=== PATIENT | male | born 1950 | race Caucasian/White ===

== ENCOUNTER 2016-07-21 13:00 | Outpatient (RCR) | payer MEDICARE | END 2016-10-05 | disposition home or self-care (01) | LOC: DT 13:00 | PROVIDERS: ATTEND Family Medicine | DX: E11.65 Type 2 diabetes mellitus with hyperglycemia (principal); Z94.0 Kidney transplant status | CPT/HCPCS: 97802; 97803 ==

== ENCOUNTER → 2016-08-19 | Outpatient (REF) | payer MEDICARE | LOC: LAB 10:06 | PROVIDERS: ATTEND Family Medicine | DX: E11.9 Type 2 diabetes mellitus without complications (principal); E78.2 Mixed hyperlipidemia | CPT/HCPCS: 80061; 83036 ==

== ENCOUNTER → 2016-11-12 | Outpatient (REF) | payer MEDICARE ==
[~2016-11-12] MED LIST: ALBU8.5H2 INH; ASPI-345 PO; AZIT250T PO; AZIT500T4 PO; B12/1TAB3 PO; CALC1TAB3; CALC600T PO; CITA40TA19 PO; CLON1TAB3 PO; DIPH1TAB49 PO; FENO45CA PO; FLUT12AE2 INH; FLUT12AE4 INH; FNST5T PO; GBPN600T PO; GLIP5TAB13 PO; HYDR-3708 PO; HYDR-3882 PO; LORA10TA7 PO; LOVA40TA2 PO; LSNP20T PO; LURA40TA PO; METF500T4 PO; METO50TA7 PO; OMEG1CAP PO; OXYB5POW PO; PANT40TA3 PO; PROP10DR4 OP; SERT100T8 PO; SOLI5TAB2 PO; SUCR1TAB29 PO; TADA10TA PO; TAMS-8 PO; THIA100T66 PO; TIOT18CA INH; TRAZ100T92 PO; ZOLE5INF IV
== END ==
LOC: LAB 12:04
PROVIDERS: ATTEND Family Medicine
DX: E11.9 Type 2 diabetes mellitus without complications (principal)
CPT/HCPCS: 83036